=== PATIENT | male | born 1965 | race Caucasian/White ===

== ENCOUNTER 2018-10-27 23:02 | Inpatient (IN) | payer OTHER ==
[~2018-10-27] VITALS: Ht 182.9 cm; Wt 157.5 kg
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
[~2018-10-27 23:02] MED LIST changes: +ACET/HYDROC 5/325MG TH ER ONLY 2 TAB/BOTTLE PO ONE; -ALLO-119 PO; -ASPI81TA94 PO; -ATOR40TA24 PO; -BLOOD PRESSURE PO; +CLINDAMYCIN 150 MG CAP PO ONE; -DOCU-202 PO; -LOSA-32 PO; -LOSA50TA80 PO; -PER PO; -PREG25 PO
[2018-10-27] MEDS ORDERED: NS(*) 0.9% 1000 ML BAG 1,000 ML IV ONE (23:06)
[2018-10-27] MEDS ORDERED: ONDANSETRON 4 MG/2 ML VIAL IVP ONE (23:10)
[2018-10-27] MEDS ORDERED: HYDROMORPHONE HCL 1 MG/ML SYRINGE IVP ONE (23:10)
[2018-10-27 23:27] LABS: INR 1.09
[2018-10-27] MEDS ORDERED: IOPAMIDOL 76% 100 ML INFUS BTL 100 ML ONE (23:30)
[2018-10-27 23:32] LABS: PLATELET COUNT, AUTOMATED 218 K/uL (150-450)
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
[2018-10-28] MEDS ORDERED: HYDROMORPHONE HCL 1 MG/ML SYRINGE IVP ONE ×2 (00:55→02:45)
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
[2018-10-28] MEDS ORDERED: BLOOD PRESSURE PO (02:40)
[2018-10-28] MEDS ORDERED: LOSA50TA80 PO (02:40)
[2018-10-28] MEDS ORDERED: ALLO-119 PO (02:40)
[2018-10-28] MEDS ORDERED: ASPI81TA94 PO (02:40)
[2018-10-28 03:05] VITALS: BP 152/92
[2018-10-28] MEDS ORDERED: LR(*) 1000 ML BAG 1,000 ML IV PRN (03:15)
[2018-10-28] MEDS ORDERED: HYDROMORPHONE HCL 1 MG/ML SYRINGE IVP PRN (03:15)
[2018-10-28] MEDS ORDERED: ONDANSETRON 4 MG/2 ML VIAL IVP PRN ×2 (03:20→09:20)
[2018-10-28] MEDS ORDERED: HYDROmorphone HCL 2 MG/ML SDV IVP PRN (03:35)
[2018-10-28 07:28] VITALS: BP 142/94
[2018-10-28] MEDS ORDERED: IBUPROFEN 200 MG TAB PO PRN (09:20)
[2018-10-28] MEDS ORDERED: MORPHINE 2 MG/ML SYR IVP PRN (09:20)
[2018-10-28] MEDS ORDERED: ACETAMINOPHEN 325 MG TAB PO PRN (09:20)
[2018-10-28] MEDS ORDERED: BISACODYL 10 MG SUPP PR PRN (09:20)
[2018-10-28] MEDS ORDERED: MAGNESIUM HYDROXIDE* 30ML UDCP PO PRN (09:20)
[2018-10-28] MEDS ORDERED: NALOXONE HCL 0.4 MG/ML VIAL IVP PRN (09:20)
[2018-10-28] MEDS: oxyCODON/ACET (*)5/325MG (CII) 1 TAB TAB PO PRN ×4 (09:40→21:25)
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
[2018-10-28 10:52] VITALS: Ht 182.9 cm; Wt 157.5 kg
[2018-10-28] MEDS: PREGABALIN 25 MG CAP PO SCH ×2 (13:29→21:24)
[2018-10-28 19:00] VITALS: BP 160/101
[2018-10-28] MEDS: FAMOTIDINE 20 MG TAB PO SCH (21:24)
[2018-10-28] MEDS: DOCUSATE SODIUM 100 MG CAP PO SCH (21:24)
[2018-10-28 23:40] VITALS: BP 154/95
[2018-10-29] MEDS: oxyCODON/ACET (*)5/325MG (CII) 1 TAB TAB PO PRN ×4 (03:51→18:07)
[2018-10-29 03:59] VITALS: BP 151/104
--- NOTE | 2018-10-29 06:15 | RADIOLOGY IMAGING REPORT ---
FACILITY: [facility] PATIENT NAME: Teto Iglesias : 1965 MR: [id number] V: [id number] EXAM DATE: ORDERING PHYSICIAN: CARLY LUTZ TECHNOLOGIST[place] [facility] [place] : 1965 Visit/Account:[id number] Date of Sevice: 10/29/2018 CHEST SINGLE AP 10/29/2018 05:00 hours. HISTORY: Rib fracture. Clavicle fracture. Follow-up. COMPARISON: 10/27/2018. TECHNIQUE: Portable AP view of the chest. FINDINGS: TUBES/LINES/HARDWARE: None. PULMONARY/PLEURA: There is a skin fold of the right lower chest. There has been development of bibasi lar opacities, left greater than right. Suspect small left pleural effusion. No pneumothorax. CARDIOMEDIASTINAL: The cardiac silhouette is enlarged, stable. The mediastinal silhouette is within n ormal limits. BONES/SOFT TISSUES: No acute osseous abnormality. Unchanged right proximal clavicle fracture. Rib fra ctures are not well seen on chest x-ray. The visible abdomen is normal. IMPRESSION: 1. Bibasilar opacities have developed, likely atelectasis. There may be a small left pleural effusion . 2. Stable cardiomegaly. Report Dictated By: Radha Shipman at 10/29/2018 6:03 AM Report E-Signed By: Radha Shipman at 10/29/2018 6:07 AM WSN:[id number]
[2018-10-29 07:21] LABS: PLATELET COUNT, AUTOMATED 200 K/uL (150-450)
[2018-10-29 07:35] VITALS: BP 156/105
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
[2018-10-29] MEDS: PREGABALIN 25 MG CAP PO SCH ×3 (08:58→20:57)
[2018-10-29] MEDS: FAMOTIDINE 20 MG TAB PO SCH ×2 (08:58→20:57)
[2018-10-29] MEDS: DOCUSATE SODIUM 100 MG CAP PO SCH ×2 (08:58→20:57)
[2018-10-29] MEDS: ENOXAPARIN 40 MG/0.4ML SYR SC SCH (08:59)
[2018-10-29] MEDS: POLYETHYLENE GLYCOL 17 GM PKT PO SCH (08:59)
--- NOTE | 2018-10-29 11:39 | NUR ---
Occupational Therapy Impression Pt ambulating in hallway (I)ly with spouse. SpO2 WNL on room air, sling donned. Educated on LB AE if desired, pt reports family will assist with ADLs as needed. Pt reports no further concerns with discharge home. No further skilled OT needs indicated at this time. Ready for discharge when medically appropriate. Occupational Therapy Goals Patient's Goal
[2018-10-29 11:47] VITALS: BP 127/77
[2018-10-29] MEDS ORDERED: LOSA-32 PO (11:55)
[2018-10-29] MEDS ORDERED: ATOR40TA24 PO (11:55)
--- NOTE | 2018-10-29 11:56 | NUR ---
Physical Therapy Impression PT eval complete. Pt educated on log roll technique and importance of deep breathing with returned verbal understanding. Pt verbalizes and demonstrates independence with safety with functional mobility and is safe to DC home when medically appropriate. Pt encouraged to ambulate frequently in hallway. Physical Therapy Goals Patient's Goals
[2018-10-29] MEDS ORDERED: LOSARTAN POTASSIUM 50 MG TAB PO ONE (14:50)
[2018-10-29] MEDS ORDERED: HYDROCHLOROTHIAZIDE 25 MG TAB PO ONE (14:50)
[2018-10-29] MEDS ORDERED: ATORVASTATIN 40 MG TAB PO SCH (15:00)
[2018-10-29 15:25] VITALS: BP 148/92
[2018-10-29 20:44] VITALS: BP 160/92
[2018-10-30] VITALS: BP 137/93
[2018-10-30] MEDS: oxyCODON/ACET (*)5/325MG (CII) 1 TAB TAB PO PRN ×3 (00:06→09:24)
[2018-10-30 05:25] VITALS: BP 146/98
[2018-10-30] MEDS ORDERED: DOCU-202 PO (08:32)
[2018-10-30] MEDS ORDERED: PREG25 PO (08:32)
[2018-10-30] MEDS ORDERED: PER PO (08:32)
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
[2018-10-30] MEDS: FAMOTIDINE 20 MG TAB PO SCH (09:00)
[2018-10-30] MEDS: DOCUSATE SODIUM 100 MG CAP PO SCH (09:00)
[2018-10-30] MEDS: PREGABALIN 25 MG CAP PO SCH (09:00)
[2018-10-30] MEDS: ENOXAPARIN 40 MG/0.4ML SYR SC SCH (09:01)
[2018-10-30] MEDS: POLYETHYLENE GLYCOL 17 GM PKT PO SCH (09:01)
[2018-10-30 10:16] VITALS: BP 129/80
[2018-10-30 11:39] VITALS: BP 129/85
[2018-10-30] MEDS ORDERED: LOSARTAN POTASSIUM 50 MG TAB PO SCH (15:00)
[2018-10-30] MEDS ORDERED: HYDROCHLOROTHIAZIDE 25 MG TAB PO SCH (15:00)
== END 2018-10-30 12:05 | disposition home or self-care (01) | DRG 184 ==
LOC: ER 23:03 → MED 10-28 02:24
PROVIDERS: ADMIT Surgery; ATTEND Surgery
PROC: 0HQ1XZZ Repair Face Skin, External Approach (ICD-10-PCS; principal; 2018-10-28)
DX: S22.43XA Multiple fractures of ribs, bilateral, initial encounter for closed fracture (principal); S02.82XA Fracture of other specified skull and facial bones, left side, initial encounter for closed fracture; Z68.42 Body mass index [BMI] 45.0-49.9, adult; S42.017A Nondisplaced fracture of sternal end of right clavicle, initial encounter for closed fracture; S01.81XA Laceration without foreign body of other part of head, initial encounter; I10 Essential (primary) hypertension; L85.9 Epidermal thickening, unspecified; E66.9 Obesity, unspecified; V86.99XA Unspecified occupant of other special all-terrain or other off-road motor vehicle injured in nontraffic accident, initial encounter; Y92.828 Other wilderness area as the place of occurrence of the external cause; Y99.8 Other external cause status
CPT/HCPCS: 36415; 70450; 71045; 71260; 72125; 72170; 74177; 80320; 81001; 82040; 82150; 82247; 82310; 82374; 82435; 82565; 82947; 83605; 83690; 84075; 84132; 84155; 84295; 84450; 84460; 84520; 85025; 85610; 85730; 86850; 86900; 86901; 96361; 96374; 96375; 96376; 97161; 97165; 99291; 99292; A4565; J1170; J1650; J2405; J7030; J7120; L0172; Q9967

== ENCOUNTER → 2018-10-27 | Outpatient (CLI) | payer OTHER ==
[~2018-10-27] MED LIST: ALLO-119 PO; ASPI81TA94 PO; ATOR40TA24 PO; BLOOD PRESSURE PO; CLIN300C99 PO; DOCU-202 PO; LOR5/325 PO; LOSA-32 PO; LOSA50TA80 PO; PER PO; PREG25 PO
[2018-10-28 10:52] VITALS: BMI 47.1
== END ==
LOC: AMB 20:14
PROVIDERS: ATTEND Nurse Practitioner
DX: R07.89 Other chest pain (principal); M54.6 Pain in thoracic spine; M54.5 Low back pain; M25.511 Pain in right shoulder; S01.81XA Laceration without foreign body of other part of head, initial encounter; V86.55XA Driver of 3- or 4- wheeled all-terrain vehicle (ATV) injured in nontraffic accident, initial encounter
CPT/HCPCS: A0425; A0433